=== PATIENT | female | born 1955 ===

== ENCOUNTER 2017-01-10 12:23 | Emergency (ER) | payer OTHER ==
[2017-01-10 12:44] VITALS: BP 160/105; PULSE 85; RESP 16; TEMP 98.2; O2SAT 99
--- NOTE | 2017-01-10 13:12 | ED PDOC ---
HPI: Head Injury Time Seen by Provider: 01/10/17 12:50 Chief Complaint (Nursing): Trauma Chief Complaint (Provider): Head injury History Per: Patient History/Exam Limitations: no limitations Onset/Duration Of Symptoms: Days (x3) Patient States: Struck With Object Severity: Mild Loss Of Consciousness: No Additional Complaint(s): Patient is a 61 year old female presenting to the ED complaining of a head injury status post a door striking her head x3 days ago. Patient also complains of headache. Yesterday at work patient reported increased headache and presents today for evaluation. Denies blurry vision, headache, or vomiting. PMD: Stalin Alva Past Medical History Reviewed: Historical Data, Nursing Documentation, Vital Signs Vital Signs: Last Vital Signs Temp 98.2 F 01/10/17 12:41 Pulse 85 01/10/17 12:41 Resp 16 01/10/17 12:41 BP 160/105 H 01/10/17 12:41 Pulse Ox 99 01/10/17 12:41 - Medical History PMH: HTN, Hypercholesterolemia - Family History Family History: States: [place], CAD, Hypertension - Immunization History Hx Tetanus Toxoid Vaccination: No Hx Influenza Vaccination: No Hx Pneumococcal Vaccination: No - Home Medications Home Medications: Ambulatory Orders Medication Instructions Recorded Norvasc 5 mg PO DAILY 01/26/14 Simvastatin 10 mg PO DAILY 01/26/14 Tekturna 150 mg PO DAILY 01/26/14 Vitamin D 2 tab PO DAILY 01/26/14 Acetaminophen [Tylenol 325mg tab] 650 mg PO STAT #0 tab 01/28/14 Aspirin [Aspirin EC] 325 mg PO DAILY #0 dose 01/28/14 Clopidogrel [Plavix] 75 mg PO DAILY #0 tab 01/28/14 Clopidogrel [Plavix] 75 mg PO DAILY #0 tab 01/28/14 Clonazepam 0.25 mg PO 06/24/14 Sertraline [Zoloft] 50 mg PO 06/24/14 - Allergies Allergies/Adverse Reactions: Allergies Allergy/AdvReac Type Severity Reaction Status Date / Time iodine Allergy RASH Verified 01/10/17 12:41 Review of Systems ROS Statement: Except As Marked, All Systems Reviewed And Found Negative Constitutional: Positive for: Other (head injury) Eyes: Negative for: Vision Change Gastrointestinal: Negative for: Nausea, Vomiting Neurological: Positive for: Headache Physical Exam - Reviewed Nursing Documentation Reviewed: Yes Vital Signs Reviewed: Yes - Physical Exam Appears: Positive for: Well, Non-toxic, No Acute Distress Head Exam: Positive for: ATRAUMATIC, NORMAL INSPECTION, NORMOCEPHALIC Skin: Positive for: Normal Color, Warm, DRY Eye Exam: Positive for: EOMI, Normal appearance, PERRL Neck: Positive for: Normal, Painless ROM Cardiovascular/Chest: Positive for: Regular Rate, Rhythm. Negative for: Gallop , Murmur Respiratory: Positive for: Normal Breath Sounds. Negative for: Accessory Muscle Use, Rhonchi, Respiratory Distress Extremity: Positive for: Normal ROM Neurologic/Psych: Positive for: Alert, embroidery machine operator II-XII (intact), Oriented, Mood/ Affect, Cerebellar Tests, Gait (steady). Negative for: Motor/Sensory Deficits, Aphasia, Facial Droop - ECG O2 Sat by Pulse Oximetry: 99 (RA) Pulse Ox Interpretation: Normal Medical Decision Making Medical Decision Making: Time: 12:55 Impression: 61 y/o female s/p head injury Plan: Patient showed picture 2 hours after the initial injury. Hematoma to the left side of the forehead noted. Motrin 600 mg PO Scribe Attestation: Documented by Phani Rangel acting as a scribe for ZULEIKA Velasco. Provider Attestation: All medical record entries made by the Scribe were at my direction and personally dictated by me. I have reviewed the chart and agree that the record accurately reflects my personal performance of the history, physical exam, medical decision making, and the department course for this patient. I have also personally directed, reviewed, and agree with the discharge instructions and disposition. Disposition - Clinical Impression Clinical Impression: Head injury - Patient ED Disposition Is Patient to be Admitted: No Counseled Patient/Family Regarding: Studies Performed, Diagnosis - Disposition Referrals: [facility] [Outside] Disposition: Routine/Home Disposition Time: 13:10 Condition: STABLE Instructions: Head Injury (ED) Forms: [facility] ED School/Work Excuse
== END 2017-01-10 13:40 | disposition home or self-care (01) ==
LOC: H.ER 12:23
DX: S09.90XA Unspecified injury of head, initial encounter (principal); W22.8XXA Striking against or struck by other objects, initial encounter; Y92.89 Other specified places as the place of occurrence of the external cause; E78.00 Pure hypercholesterolemia, unspecified; I10 Essential (primary) hypertension; Z79.82 Long term (current) use of aspirin

== ENCOUNTER 2018-08-13 19:38 | Observation (INO) | payer SELFPAY ==
[2018-08-13] MEDS ORDERED: DiphenhydrAMINE 50 mg/ml Inj IVP STA (19:52)
--- NOTE | 2018-08-13 20:30 | ED PDOC ---
HPI: Allergic Reaction Time Seen by Provider: 08/13/18 19:40 Chief Complaint (Nursing): Allergic Reaction Chief Complaint (Provider): Allergic Reaction History Per: Patient History/Exam Limitations: no limitations Onset/Duration Of Symptoms: Hrs (x5) Current Symptoms Are (Timing): Still Present Additional Complaint(s): Mar Bailey, a 63 year old female with a past medical history of HTN, who presents to ED complaining of an allergic reaction onset at 15:00 today. Patient reports lip swelling associated with itchy skin on upper extremities. Patient states she had an allergic reaction last week of unknown trigger and was given prednisone by her pcp. She followed up with her PMD this morning and everything was normal and improving. However, patient states she developed symptoms x3 hours after eating two peanut butter cups. Patient has never had a previous allergic reaction to peanut butter. She denies trouble breathing, throat pain, tongue swelling or other medical complaints. PCP: Stalin Moon Past Medical History Reviewed: Historical Data, Nursing Documentation, Vital Signs Vital Signs: Last Vital Signs Temp 97.9 F 08/13/18 19:44 Pulse 78 08/13/18 19:44 Resp 18 08/13/18 19:44 BP 146/87 08/13/18 19:44 Pulse Ox 96 08/13/18 19:44 - Medical History PMH: HTN, Hypercholesterolemia - Surgical History Surgical History: No Surg Hx - Family History Family History: States: [place], CAD, Hypertension - Social History Current smoker - smoking cessation education provided: No Alcohol: None Drugs: Denies - Immunization History Hx Tetanus Toxoid Vaccination: No Hx Influenza Vaccination: No Hx Pneumococcal Vaccination: No - Home Medications Home Medications: Ambulatory Orders Medication Instructions Recorded Simvastatin 10 mg PO DAILY 01/26/14 Famotidine [Pepcid] 20 mg PO BID #20 tab 08/14/18 Methylprednisolone [Medrol Dose 4 mg PO ASDIR #21 mg 08/14/18 Pack (21 tabs)] RX: DiphenhydrAMINE [Benadryl] 25 mg PO TID PRN #30 cap 08/14/18 RX: Losartan [Cozaar] 25 mg PO DAILY 08/14/18 - Allergies Allergies/Adverse Reactions: Allergies Allergy/AdvReac Type Severity Reaction Status Date / Time iodine Allergy RASH Verified 08/13/18 19:48 nut - unspecified Allergy SWELLING Verified 08/14/18 13:17 Review of Systems ROS Statement: Except As Marked, All Systems Reviewed And Found Negative ENT: Positive for: Mouth Swelling (lip swelling). Negative for: Throat Pain, Throat Swelling Respiratory: Negative for: Shortness of Breath Skin: Positive for: Other (itchiness to upper extremities) Physical Exam - Reviewed Nursing Documentation Reviewed: Yes Vital Signs Reviewed: Yes - Physical Exam Appears: Positive for: No Acute Distress (pt is awake and alert, patent airway, no distress, no tachypnea, speaking in full sentences) Head Exam: Positive for: ATRAUMATIC, NORMAL INSPECTION, NORMOCEPHALIC Skin: Positive for: Normal Color, Warm, Dry Eye Exam: Positive for: Normal appearance, EOMI, PERRL ENT: Positive for: Pharynx Is (clear) Neck: Positive for: Normal, Painless ROM Cardiovascular/Chest: Positive for: Regular Rate, Rhythm. Negative for: Murmur Respiratory: Positive for: Normal Breath Sounds. Negative for: Respiratory Distress Gastrointestinal/Abdominal: Positive for: Normal Exam, Soft. Negative for: Tenderness, Guarding, Rebound Back: Positive for: Normal Inspection Extremity: Positive for: Normal ROM (upper and lower extremities). Negative for: Deformity, Swelling Neurologic/Psych: Positive for: Alert, Oriented - Laboratory Results Result Diagrams: 08/13/18 21:13 08/13/18 21:13 - ECG O2 Sat by Pulse Oximetry: 96 (RA) Pulse Ox Interpretation: Normal - Critical Care Total Time (In Min): 30 (multiple reevaluations of pt at bedside ) Documented Critical Care: Time excludes all time spent performint seperately billable procedures Disposition - Clinical Impression Clinical Impression: Allergic reaction - Patient ED Disposition Is Patient to be Admitted: Yes Counseled Patient/Family Regarding: Studies Performed, Diagnosis - Disposition Disposition Time: 22:40 Condition: STABLE Medical Decision Making Medical Decision Making: Time: 19:52 Initial Impression: allergic reaction/ ?angioedema pt currently from a respiratory persepctive stable no tachypnea, no labored breathing, tongue not swollen Initial Plan: --CMP --CBC w/ differential --Benadryl 50 mg IVP --Pepcid 20 mg IVP --SOLU-medrol 125 mg IVP --Reevaluation 22:40 -Patient reports rash went away but lips still swollen. Patient will be admitted to hospitalist, Dr. Jha made aware. She will be placed on OBS Telly possible etiology for swelling could be nut allergy OR SONA inhibitor the patient is on for htn pt currently airway intact, no respiratory distress. lungs clear. awake and alert. Scribe Attestation: Documented by Edwin Brand, acting as a scribe for Clair Helton MD. Provider Scribe Attestation: All medical record entries made by the Scribe were at my direction and person ally dictated by me. I have reviewed the chart and agree that the record accurately reflects my personal performance of the history, physical exam, medical decision making, and the department course for this patient. I have also personally directed, reviewed, and agree with the discharge instructions and disposition.
[2018-08-13 21:22] LABS: BASO % 0.2 % (0.0-2.0); EOS # 0.1 K/uL (0.0-0.7); EOS % 0.9 % (0.0-4.0); HEMOGLOBIN 15.3 g/dL (12.0-16.0); LYMPH # 4.2 K/uL (1.0-4.3); LYMPH % 32.8 % (20.0-40.0); MEAN CELL VOLUME 85.8 fl (81.0-99.0); MEAN CORPUSCULAR HEMOGLOBIN 28.8 pg (27.0-31.0); MEAN CORPUSCULAR HGB CONC 33.6 g/dL (33.0-37.0); MONO # 1.2 K/uL (0.0-0.8); MONO % 9.1 % (0.0-10.0); NEUT # 7.3 K/uL (1.8-7.0); NRBC % 0.1 % (0.0-0.0); RBC 5.3 Mil/uL (3.80-5.20); RED CELL DISTRIBUTION WIDTH 14.1 % (11.5-14.5); WHITE BLOOD COUNT 12.8 K/uL (4.8-10.8)
[2018-08-13 21:41] LABS: BLOOD UREA NITROGEN 30 mg/dl (7-17); CALCIUM 9.2 mg/dL (8.4-10.2); GFR NON-AFRICAN AMERICAN > 60
[2018-08-13 21:52] LABS: ALB/GLOB RATIO 1.1 (1.0-2.1); ALBUMIN 4.4 g/dL (3.5-5.0); ALT/SGPT < 6 U/L (9-52); AST/SGOT 65 U/L (14-36)
--- NOTE | 2018-08-13 23:39 | CP.PCM.HP ---
<WorthyPrem martinez - Last Filed: 08/13/18 23:39> History of Present Illness - History of Present Illness History of Present Illness: 63 year old female presented for evaluation of urticaria and lip swelling. She was seen last week and earlier today with complaints of pruritis and rash on bilateral arms and lip swelling that began this afternoon. She was given prednisone and benadryl in clinic that she finished yesterday. She denies any dizziness, chest tightness, chest pain, shortness of breath. She has no problems swallowing. Patient states she had butterfinger or peanut butter cups prior to symptoms starting. ROS : 12 point ROS negative except as noted above PMH: HTN Medications: as per ecw: losartan, chlorthalidone, lipitor, effexor Allergies: iodine Social: no tobacco, no illicit drugs, no etoh use Surgical Hx: Present on Admission - Present on Admission Any Indicators Present on Admission: No Past Patient History - Past Social History Alcohol: None Drugs: Denies - CARDIAC Hx Hypercholesterolemia: Yes Hx Hypertension: Yes - NEUROLOGICAL Other/Comment: stroke 01/26/14 - MUSCULOSKELETAL/RHEUMATOLOGICAL Hx Falls: No - PSYCHIATRIC Hx Substance Use: No - SURGICAL HISTORY Hx Section: Yes (1992) Meds Allergies/Adverse Reactions: Allergies Allergy/AdvReac Type Severity Reaction Status Date / Time iodine Allergy RASH Verified 08/13/18 19:48 Physical Exam - Constitutional Appears: Non-toxic, No Acute Distress - Eye Exam Eye Exam: EOMI, Normal appearance, PERRL - ENT Exam ENT Exam: Mucous Membranes Moist Additional comments: edema of lips - Neck Exam Neck exam: Positive for: Normal Inspection - Respiratory Exam Respiratory Exam: Clear to Auscultation Bilateral, NORMAL BREATHING PATTERN. absent: Decreased Breath Sounds, Wheezes, Respiratory Distress, Stridor - Cardiovascular Exam Cardiovascular Exam: REGULAR RHYTHM, +S1, +S2 - Neurological Exam Neurological exam: Alert, CN II-XII Intact, Normal Gait, Oriented x3, Reflexes Normal - Skin Skin Exam: Rash Additional comments: wheals on right and left forearms, no other lesions noted one xposed areas Results - Vital Signs Recent Vital Signs: Last Vital Signs Temp 97.9 F 08/13/18 19:44 Pulse 78 08/13/18 19:44 Resp 18 08/13/18 19:44 BP 146/87 08/13/18 19:44 Pulse Ox 96 08/13/18 22:49 - Labs Result Diagrams: 08/13/18 21:13 08/13/18 21:13 Labs: Laboratory Results - last 24 hr 08/13/18 08/13/18 21:13 21:13 WBC 12.8 H RBC 5.30 H Hgb 15.3 Hct 45.5 MCV 85.8 MCH 28.8 MCHC 33.6 RDW 14.1 Plt Count 389 MPV 9.0 Neut % (Auto) 57.0 Lymph % (Auto) 32.8 [place] % (Auto) 9.1 Eos % (Auto) 0.9 Baso % (Auto) 0.2 Neut # (Auto) 7.3 H Lymph # (Auto) 4.2 [place] # (Auto) 1.2 H Eos # (Auto) 0.1 Baso # (Auto) 0.0 Sodium 135 Potassium 4.5 Chloride 97 L Carbon Dioxide 24 Anion Gap 19 BUN 30 H Creatinine 0.8 Est GFR ( Amer) > 60 Est GFR (Non-Af Amer) > 60 Random Glucose 88 Calcium 9.2 Total Bilirubin 1.6 H AST 65 H D ALT < 6 L D Alkaline Phosphatase 110 Total Protein 8.6 H Albumin 4.4 Globulin 4.2 H Albumin/Globulin Ratio 1.1 Assessment & Plan - Assessment and Plan (Free Text) Assessment: 63 year old female admitted for angioedema and urticaria. She is hemodynamically stable, no respiratory disress. Patient is on losartan outpatient, will hold. May be secondary to medications vs food allergy. #Allergic Reaction #Angioedema #HTN -continue IV solumedrol -Continue benadryl q 6 -monitor respiratory status -SCDs Patient seen and examined with attending. <Hamlet Jha - Last Filed: 08/14/18 06:17> Results - Vital Signs Recent Vital Signs: Last Vital Signs Temp 97.5 F L 08/14/18 04:53 Pulse 59 L 08/14/18 04:53 Resp 16 08/14/18 04:53 BP 100/59 L 08/14/18 04:53 Pulse Ox 95 08/14/18 04:53 - Labs Result Diagrams: 08/13/18 21:13 08/13/18 21:13 Labs: Laboratory Results - last 24 hr 08/13/18 08/13/18 21:13 21:13 WBC 12.8 H RBC 5.30 H Hgb 15.3 Hct 45.5 MCV 85.8 MCH 28.8 MCHC 33.6 RDW 14.1 Plt Count 389 MPV 9.0 Neut % (Auto) 57.0 Lymph % (Auto) 32.8 [place] % (Auto) 9.1 Eos % (Auto) 0.9 Baso % (Auto) 0.2 Neut # (Auto) 7.3 H Lymph # (Auto) 4.2 [place] # (Auto) 1.2 H Eos # (Auto) 0.1 Baso # (Auto) 0.0 Sodium 135 Potassium 4.5 Chloride 97 L Carbon Dioxide 24 Anion Gap 19 BUN 30 H Creatinine 0.8 Est GFR ( Amer) > 60 Est GFR (Non-Af Amer) > 60 Random Glucose 88 Calcium 9.2 Total Bilirubin 1.6 H AST 65 H D ALT < 6 L D Alkaline Phosphatase 110 Total Protein 8.6 H Albumin 4.4 Globulin 4.2 H Albumin/Globulin Ratio 1.1 Attending/Attestation - Attestation I have personally seen and examined this patient.: Yes I have fully participated in the care of the patient.: Yes I have reviewed all pertinent clinical information: Yes Notes (Text): 08/14/18 06:02 I saw and examined this patient shoulder to shoulder with Dr Worthy. I agree with the assessment and plan which represent my direct input. This is a 63 years old female with a recent allergic reaction which improved on Benadryl and Prednisone, now come to the ED one day after stopping those medications , with Urticaria and swelling of both lips after eating foods which included Nut. She also uses an SONA inhibitor for Hypertension control. She is being treated with H1, H2 blockers along with Methylprednisolone. She will have to discontinue the SONA inhibitorand be discharged on Prednisone with referred to the Manager Payroll. Hamlet Jha MD
[2018-08-14] MEDS: Sodium Chloride 0.9% 1,000 ML IV SCH ×2 (00:39→08:57)
[2018-08-14 02:28] VITALS: BMI 28.1
[2018-08-14] MEDS ORDERED: methylPREDNISolone 60 MG in Sodium Chloride 0.9% 50 ML IVPB SCH (04:00)
--- NOTE | 2018-08-14 06:47 | CARD ---
APPROVED REPORT Date of service: 08/14/2018 EKG Measurement Heart [id number] <Conclusion> Normal sinus rhythm Prolonged QT Abnormal ECG
[2018-08-14 12:34] VITALS: RESP 19; TEMP 98.1
[2018-08-14 12:42] VITALS: BP 121/71; PULSE 74
--- NOTE | 2018-08-14 14:07 | CP.PCM.DIS ---
<ValentinaSepideha - Last Filed: 08/14/18 14:38> Provider - Provider Date of Admission: 08/13/18 22:24 Attending physician: Hamlet Jha Primary care physician: Dr. Merino- [facility] Time Spent in preparation of Discharge (in minutes): 30 Diagnosis - Discharge Diagnosis (1) Lip swelling Status: Acute (2) Allergic reaction Status: Acute Hospital Course - Lab Results Lab Results: Most Recent Lab Values WBC 12.8 K/uL (4.8-10.8) H 08/13/18 21:13 RBC 5.30 Mil/uL (3.80-5.20) H 08/13/18 21:13 Hgb 15.3 g/dL (12.0-16.0) 08/13/18 21:13 Hct 45.5 % (34.0-47.0) 08/13/18 21:13 MCV 85.8 fl (81.0-99.0) 08/13/18 21:13 MCH 28.8 pg (27.0-31.0) 08/13/18 21:13 MCHC 33.6 g/dL (33.0-37.0) 08/13/18 21:13 RDW 14.1 % (11.5-14.5) 08/13/18 21:13 Plt Count 389 K/uL (130-400) 08/13/18 21:13 MPV 9.0 fl (7.2-11.7) 08/13/18 21:13 Neut % (Auto) 57.0 % (50.0-75.0) 08/13/18 21:13 Lymph % (Auto) 32.8 % (20.0-40.0) 08/13/18 21:13 [place] % (Auto) 9.1 % (0.0-10.0) 08/13/18 21:13 Eos % (Auto) 0.9 % (0.0-4.0) 08/13/18 21:13 Baso % (Auto) 0.2 % (0.0-2.0) 08/13/18 21:13 Neut # (Auto) 7.3 K/uL (1.8-7.0) H 08/13/18 21:13 Lymph # (Auto) 4.2 K/uL (1.0-4.3) 08/13/18 21:13 [place] # (Auto) 1.2 K/uL (0.0-0.8) H 08/13/18 21:13 Eos # (Auto) 0.1 K/uL (0.0-0.7) 08/13/18 21:13 Baso # (Auto) 0.0 K/uL (0.0-0.2) 08/13/18 21:13 Sodium 135 mmol/l (132-148) 08/13/18 21:13 Potassium 4.5 MMOL/L (3.6-5.0) 08/13/18 21:13 Chloride 97 mmol/L (98-107) L 08/13/18 21:13 Carbon Dioxide 24 mmol/L (22-30) 08/13/18 21:13 Anion Gap 19 (10-20) 08/13/18 21:13 BUN 30 mg/dl (7-17) H 08/13/18 21:13 Creatinine 0.8 mg/dl (0.7-1.2) 08/13/18 21:13 Est GFR ( Amer) > 60 08/13/18 21:13 Est GFR (Non-Af Amer) > 60 08/13/18 21:13 Random Glucose 88 mg/dL (65-105) 08/13/18 21:13 Calcium 9.2 mg/dL (8.4-10.2) 08/13/18 21:13 Total Bilirubin 1.6 mg/dl (0.2-1.3) H 08/13/18 21:13 AST 65 U/L (14-36) H D 08/13/18 21:13 ALT < 6 U/L (9-52) L D 08/13/18 21:13 Alkaline Phosphatase 110 U/L (38-126) 08/13/18 21:13 Total Protein 8.6 G/DL (6.3-8.2) H 08/13/18 21:13 Albumin 4.4 g/dL (3.5-5.0) 08/13/18 21:13 Globulin 4.2 gm/dL (2.2-3.9) H 08/13/18 21:13 Albumin/Globulin Ratio 1.1 (1.0-2.1) 08/13/18 21:13 - Hospital Course Hospital Course: 63 year old female with history of hypertension who presented for evaluation of urticaria and lip swelling and was admitted due to significant swelling and concern for laryngeoedema. Pt was treated with IV prednisone and benadryl, and this morning, urticaria has completely resolved, and lip swelling has improved significantly. Pt states she has allergy to iodine and avoids shellfish, but has no other food restrictions/allergies in the past, and that she has never happened before. Throughout her stay, she did not experience any shortness of breath, wheezing, or feeling her throat swell/close up, or any issues with swallowing. This morning, she was seen at bedside and reported resolution of urticarial and improvement of lip swelling. She denies dizziness, chest tightness, chest pain, shortness of breath. She will be discharged today, with prescription for Medrol Pack, Benadryl and instructions to follow up with PMD at the [facility] on Aug 18 at 11 am. Discharge Exam - Head Exam Head Exam: ATRAUMATIC, NORMAL INSPECTION, NORMOCEPHALIC - Eye Exam Eye Exam: Normal appearance - ENT Exam Additional comments: lip swelling; significantly less than in pictures patient is able to show of night before, on admission - Respiratory Exam Respiratory Exam: Clear to PA & Lateral, NORMAL BREATHING PATTERN. absent: Wheezes, Respiratory Distress - Cardiovascular Exam Cardiovascular Exam: REGULAR RHYTHM, +S1, +S2 - GI/Abdominal Exam GI & Abdominal Exam: Soft. absent: Tenderness - Extremities Exam Extremities exam: normal inspection - Neurological Exam Neurological exam: Alert, Oriented x3 - Psychiatric Exam Psychiatric exam: Normal Affect, Normal Mood - Skin Skin Exam: Dry, Normal Color, Warm Additional comments: no urticarial lesions Discharge Plan - Discharge Medications Prescriptions: RX: DiphenhydrAMINE [Benadryl] 25 mg PO TID PRN #30 cap PRN Reason: Allergy Symptoms Famotidine [Pepcid] 20 mg PO BID #20 tab Methylprednisolone [Medrol Dose Pack (21 tabs)] 4 mg PO ASDIR #21 mg - Follow Up Plan Condition: GOOD Disposition: HOME/ ROUTINE Instructions: Anaphylaxis Additional Instructions: Please follow up with PMD Dr. Merino on Aug 18 at [address] [facility] at [address] [place] [address]. Return to ED if you experience recurrent swelling, throat tightness, or difficulty breathing. Referrals: [facility] [Outside] - 08/18/18 11:00 am () <HarmanSyd ram D - Last Filed: 08/14/18 15:35> Provider - Provider Date of Admission: 08/13/18 22:24 Attending physician: Hamlet Jha [facility] Course - Lab Results Lab Results: Most Recent Lab Values WBC 12.8 K/uL (4.8-10.8) H 08/13/18 21:13 RBC 5.30 Mil/uL (3.80-5.20) H 08/13/18 21:13 Hgb 15.3 g/dL (12.0-16.0) 08/13/18 21:13 Hct 45.5 % (34.0-47.0) 08/13/18 21:13 MCV 85.8 fl (81.0-99.0) 08/13/18 21:13 MCH 28.8 pg (27.0-31.0) 08/13/18 21:13 MCHC 33.6 g/dL (33.0-37.0) 08/13/18 21:13 RDW 14.1 % (11.5-14.5) 08/13/18 21:13 Plt Count 389 K/uL (130-400) 08/13/18 21:13 MPV 9.0 fl (7.2-11.7) 08/13/18 21:13 Neut % (Auto) 57.0 % (50.0-75.0) 08/13/18 21:13 Lymph % (Auto) 32.8 % (20.0-40.0) 08/13/18 21:13 [place] % (Auto) 9.1 % (0.0-10.0) 08/13/18 21:13 Eos % (Auto) 0.9 % (0.0-4.0) 08/13/18 21:13 Baso % (Auto) 0.2 % (0.0-2.0) 08/13/18 21:13 Neut # (Auto) 7.3 K/uL (1.8-7.0) H 08/13/18 21:13 Lymph # (Auto) 4.2 K/uL (1.0-4.3) 08/13/18 21:13 [place] # (Auto) 1.2 K/uL (0.0-0.8) H 08/13/18 21:13 Eos # (Auto) 0.1 K/uL (0.0-0.7) 08/13/18 21:13 Baso # (Auto) 0.0 K/uL (0.0-0.2) 08/13/18 21:13 Sodium 135 mmol/l (132-148) 08/13/18 21:13 Potassium 4.5 MMOL/L (3.6-5.0) 08/13/18 21:13 Chloride 97 mmol/L (98-107) L 08/13/18 21:13 Carbon Dioxide 24 mmol/L (22-30) 08/13/18 21:13 Anion Gap 19 (10-20) 08/13/18 21:13 BUN 30 mg/dl (7-17) H 08/13/18 21:13 Creatinine 0.8 mg/dl (0.7-1.2) 08/13/18 21:13 Est GFR ( Amer) > 60 08/13/18 21:13 Est GFR (Non-Af Amer) > 60 08/13/18 21:13 Random Glucose 88 mg/dL (65-105) 08/13/18 21:13 Calcium 9.2 mg/dL (8.4-10.2) 08/13/18 21:13 Total Bilirubin 1.6 mg/dl (0.2-1.3) H 08/13/18 21:13 AST 65 U/L (14-36) H D 08/13/18 21:13 ALT < 6 U/L (9-52) L D 08/13/18 21:13 Alkaline Phosphatase 110 U/L (38-126) 08/13/18 21:13 Total Protein 8.6 G/DL (6.3-8.2) H 08/13/18 21:13 Albumin 4.4 g/dL (3.5-5.0) 08/13/18 21:13 Globulin 4.2 gm/dL (2.2-3.9) H 08/13/18 21:13 Albumin/Globulin Ratio 1.1 (1.0-2.1) 08/13/18 21:13 Attending/Attestation - Attestation I have personally seen and examined this patient.: Yes I have fully participated in the care of the patient.: Yes I have reviewed all pertinent clinical information, including history, physical exam and plan: Yes Notes (Text): 08/14/18 15:33 Patient seen and examined. Case discussed and agreed with assessment. Patient will follow up with Dr Ball and was advised to also see an allergologist for further work ups and management.
--- NOTE | 2018-08-14 14:56 | US ---
Date of service: 08/14/2018 HISTORY: r/o liver disease ,, elevated Salvatore COMPARISON: None. TECHNIQUE: Sonographic evaluation of the right upper quadrant of the abdomen. FINDINGS: LIVER: Measures 13.2 cm in length. Increased echogenicity of the liver parenchyma. No mass. No intrahepatic bile duct dilatation. GALLBLADDER: Unremarkable. No gallstones. COMMON BILE DUCT: Measures 3 mm. No stones. No dilatation. PANCREAS: Unremarkable as visualized. No mass. No ductal dilatation. RIGHT KIDNEY: Measures 9.4 x 4.0 x 4.2 cm in length. Lower pole cyst measuring 1.5 x 1.3 x 1.3 cm. Lower pole nonobstructive calculus measuring 0.5 x 0.6 x 0.4 cm. Normal echogenicity. No calculus, mass, or hydronephrosis. AORTA: No aneurysmal dilatation. IVC: Unremarkable. OTHER FINDINGS: None . IMPRESSION: Hepatic steatosis. Right renal cyst and nonobstructive 6 mm nephrolith.
--- NOTE | 2018-08-14 19:09 | CARD ---
APPROVED REPORT Date of service: 08/14/2018 EKG Measurement Heart [id number] <Conclusion> Normal sinus rhythm Low voltage QRS Cannot rule out Anterior infarct, age undetermined Abnormal ECG
[2018-08-15 06:19] VITALS: O2SAT 96
== END 2018-08-14 15:25 | disposition home or self-care (01) ==
LOC: H.ER 19:38 → H.ERHOLD 22:24 → H.ICU/CCU 08-14 02:00
PROVIDERS: ADMIT Internal Medicine; ATTEND Internal Medicine
DX: L50.0 Allergic urticaria (principal); E78.00 Pure hypercholesterolemia, unspecified; Z91.041 Radiographic dye allergy status; Z91.018 Allergy to other foods; Z86.73 Personal history of transient ischemic attack (TIA), and cerebral infarction without residual deficits; I10 Essential (primary) hypertension
CPT/HCPCS: 76705; 80053; 85025; 87081; 93005; 96361; 96374; 96375; 96376; 99282; G0378; J1200; J2930; J7030

== ENCOUNTER 2018-09-07 18:28 | Emergency (ER) | payer SELFPAY ==
[2018-09-07 18:29] VITALS: BMI 28.1
[2018-09-07 18:40] VITALS: TEMP 98.3; O2SAT 99
--- NOTE | 2018-09-07 19:34 | ED PDOC ---
Lower Extremity Pain/Injury Time Seen by Provider: 09/07/18 18:42 Chief Complaint (Nursing): Lower Extremity Problem/Injury Chief Complaint (Provider): Lower Extremity Problem/Injury History Per: Patient History/Exam Limitations: no limitations Onset/Duration Of Symptoms: Days (yesterday) Current Symptoms Are (Timing): Still Present Additional Complaint(s): 63 year old female with a history of hypertension, high cholesterol and depression presents to the ED for evaluation of right foot and ankle pain s/p fall yesterday. Patient states she was going into her basement when she tripped on the last four steps and rolled the right foot and ankle. She reports feeling it pop. Patient has a history of fracture of that foot years ago which did not require surgical repair. She has been taking Ibuprofen for pain, last dose was 400 mg at 9 am. Patient denies any other injury, but reports localized pain to foot and ankle and described pain a 8 out of 10 in severity. She walked on foot all day because she had to babysit her grandchild and noticed her foot and ankle were swelling more. PMD: Artie - Ankle/Foot Description Of Injury: Other (tripped) Past Medical History Reviewed: Historical Data, Nursing Documentation, Vital Signs Vital Signs: Last Vital Signs Temp 98.3 F 09/07/18 18:35 Pulse 84 09/07/18 18:35 Resp 18 09/07/18 18:35 BP 148/94 H 09/07/18 18:35 Pulse Ox 99 09/07/18 18:35 - Medical History PMH: Depression, HTN, Hypercholesterolemia, TIA - Surgical History Surgical History: - Family History Family History: States: MS, CAD, Hypertension - Home Medications Home Medications: Ambulatory Orders Medication Instructions Recorded Simvastatin 10 mg PO DAILY 01/26/14 Famotidine [Pepcid] 20 mg PO BID #20 tab 08/14/18 Methylprednisolone [Medrol Dose 4 mg PO ASDIR #21 mg 08/14/18 Pack (21 tabs)] RX: DiphenhydrAMINE [Benadryl] 25 mg PO TID PRN #30 cap 08/14/18 RX: Losartan [Cozaar] 25 mg PO DAILY 08/14/18 Acetaminophen [Acetaminophen 8 650 mg PO Q8 PRN #21 tablet.er 09/07/18 Hour] Meloxicam [Mobic] 15 mg PO DAILY PRN #10 tab 09/07/18 RX: traMADol [Ultram] 50 mg PO Q6 PRN #12 tab 09/07/18 - Allergies Allergies/Adverse Reactions: Allergies Allergy/AdvReac Type Severity Reaction Status Date / Time iodine Allergy RASH Verified 08/13/18 19:48 nut - unspecified Allergy SWELLING Verified 08/14/18 13:17 Review of Systems ROS Statement: Except As Marked, All Systems Reviewed And Found Negative Musculoskeletal: Positive for: Foot Pain (right foot and ankle pain ) Physical Exam - Reviewed Nursing Documentation Reviewed: Yes Vital Signs Reviewed: Yes - Physical Exam Comments: GENERAL APPEARANCE: Patient is awake, alert, oriented x 3, and uncomfortable appearing. SKIN: Warm, dry; (-) cyanosis. NECK: Supple, FROM CARDIOVASCULAR: Normal rate and rhythm RESPIRATORY: lungs clear to auscultation bilaterally (-) rales (-) wheezing (-) rhonchi. Breath sounds equal bilaterally. Respirations even and nonlabored. LOWER EXTREMITY: Tenderness to lateral malleolus and 4th and 5th metatarsal of right foot, (+)ankle effusion (+) large area of edema and ecchymosis to lateral aspects of right midfoot and forefoot. No range of motion at right ankle secondary to pain; sensation and capillary refill intact throughout. Remainder of lower extremity is nontender with FROM. (-) calf tenderness. Patient is limping in the ED. CARDIOVASCULAR: (+) distal pulse. NEUROLOGIC: (+) distal sensation. - ECG O2 Sat by Pulse Oximetry: 99 (RA) Pulse Ox Interpretation: Normal Medical Decision Making Medical Decision Making: Time: 1849 Clinical Impression: Foot and ankle pain, rule out fracture Initial Plan: --Toradol 15 mg IM --Ultram 50 mg PO (not driving home) --Right ankle XR --Right foot XR Time: 1917 --X-ray of ankle is unremarkable. --Foot x-ray (+) fracture to the proximal aspect of the 5th metatarsal. In light of x-ray findings, podiatry consult placed at 1914. Time: 1919 --Spoke to podiatry resident Fabi who is agreeable to evaluation of patient in ED. Time: 1999 --Podiatry resident at bedside. See consult note. 2044 Patient placed in posterior short leg splint by podiatry. Provided with crutches and instructed on crutch walking. Patient to follow up with podiatry clinic within the week as directed by podiatry. TEMO encouraged. Repeat BP: 147/98 On re-evaluation, patient reports improvement of symptoms. On exam, patient remains AAOx3, in no acute distress. Vitals stable. Lab/Diagnostic results d/w the patient in great detail. Diagnosis of acute foot and ankle pain, ankle sprain, metatarsal fracture d/w the patient. Based on history, exam and diagnostic results, plan will be for outpatient follow up with podiatry. Patient instructed to follow-up with pmd / referral provided / the clinic in 1- 2 days without fail. Advised to take medication as prescribed. Return to the emergency room at any time for any new or worsening symptoms. Patient states she fully agrees with and understands discharge instructions. States that she agrees with the plan and disposition. Verbalized and repeated discharge instructions and plan. I have given the patient opportunity to ask any additional questions. Scribe Attestation: Documented by Kira Truong, acting as a scribe for Maritza Alejo PA-C. Provider Scribe Attestation: All medical record entries made by the Scribe were at my direction and personally dictated by me. I have reviewed the chart and agree that the record accurately reflects my personal performance of the history, physical exam, medical decision making, and the department course for this patient. I have also personally directed, reviewed, and agree with the discharge instructions and disposition. Disposition - Clinical Impression Clinical Impression: Metatarsal fracture, Ankle sprain - Patient ED Disposition Is Patient to be Admitted: No Counseled Patient/Family Regarding: Studies Performed, Diagnosis, Need For Followup, Rx Given - Disposition Referrals: Podiatry Clinic [Outside] Stalin Alva [Family Provider] - Disposition: Routine/Home Disposition Time: 20:50 Condition: STABLE Additional Instructions: The emergency medical care you received today was directed at your acute symptoms. If you were prescribed any medication, please fill it and take as directed. It may take several days for your symptoms to resolve. Return to the Emergency Department if your symptoms worsen, do not improve, or if you have any other problems. Please contact your doctor in 2 days for re-evaluation and follow up / or call one of the physicians/clinics you have been referred to that are listed on the Patient Visit Information form that is included in your discharge packet. Bring any paperwork you were given at discharge with you along with any medications you are taking to your follow up visit. Our treatment cannot replace ongoing medical care by a primary care provider (PCP) outside of the emergency department. Prescriptions: Acetaminophen [Acetaminophen 8 Hour] 650 mg PO Q8 PRN #21 tablet.er PRN Reason: Pain, Moderate (4-7) Meloxicam [Mobic] 15 mg PO DAILY PRN #10 tab PRN Reason: Pain, Moderate (4-7) RX: traMADol [Ultram] 50 mg PO Q6 PRN #12 tab PRN Reason: Pain, Severe (8-10) Instructions: Ankle Sprain (DC), Foot Fracture (DC) Forms: [employer] (Singaporean) Print Language: ALBANIAN - POA Present On Arrival: Falls Or Trauma
[2018-09-07 20:59] VITALS: BP 147/98; PULSE 72; RESP 16
--- NOTE | 2018-09-07 21:36 | CP.PCM.CON ---
History of Present Illness - History of Present Illness History of Present Illness: Podiatry consult note for Dr. Xie 63 y/o female patient with PMHx of HTn and high cholesterol was seen and evaluated due to complaints of pain to her right foot s/p fall. Patient states she was going down to her basement yesterday, when she tripped on the stairs and twisted her right foot and ankle. Patient states she iced the foot, applied an SONA bandage, and had her foot elevated at night. Patient states her pain is 7/10 on the VAS. Patient reports takign Ibuprofen for the pain. Patient denies any numbness or tingling. Patient states the pain is worse with ambulation. Patient reports she walked on the foot throughout the day, however the swelling has decreased. PMHx: HTN, hyperlipidemia, depression Medications: see chart Allergies: Codeine Review of Systems - Review of Systems All systems: reviewed and no additional remarkable complaints except Review of Systems: As per HPI Past Patient History - Past Medical History & Family History Past Medical History?: Yes - Past Social History Smoking Status: Never Smoked - CARDIAC Hx Hypercholesterolemia: Yes Hx Hypertension: Yes - PULMONARY Hx Respiratory Disorders: No - NEUROLOGICAL Hx Transient Ischemic Attacks (TIA): Yes - HEENT Hx HEENT Problems: No - RENAL Hx Chronic Kidney Disease: No - ENDOCRINE/METABOLIC Hx Endocrine Disorders: No - HEMATOLOGICAL/ONCOLOGICAL Hx Blood Disorders: No - INTEGUMENTARY Hx Dermatological Problems: No - MUSCULOSKELETAL/RHEUMATOLOGICAL Hx Musculoskeletal Disorders: No - GASTROINTESTINAL Hx Gastrointestinal Disorders: No - GENITOURINARY/GYNECOLOGICAL Hx Genitourinary Disorders: No - PSYCHIATRIC Hx Depression: Yes - SURGICAL HISTORY Hx Surgeries: Yes - ANESTHESIA Hx Anesthesia: Yes Hx Anesthesia Reactions: No Hx Malignant Hyperthermia: No Meds Home Medications: Home Medication List Medication Instructions Recorded Confirmed Type Acetaminophen [Acetaminophen 8 650 mg PO Q8 PRN #21 tablet.er 09/07/18 Rx Hour] Meloxicam [Mobic] 15 mg PO DAILY PRN #10 tab 09/07/18 Rx traMADol [Ultram] 50 mg PO Q6 PRN #12 tab 09/07/18 Rx Allergies/Adverse Reactions: Allergies Allergy/AdvReac Type Severity Reaction Status Date / Time iodine Allergy RASH Verified 08/13/18 19:48 nut - unspecified Allergy SWELLING Verified 08/14/18 13:17 Physical Exam - Constitutional Appears: Well, Non-toxic, No Acute Distress - Head Exam Head Exam: ATRAUMATIC, NORMOCEPHALIC - Extremities Exam Additional comments: Right Lower Extremity VASC: DP and PT 2/4 bilaterally, CFT less than 3 seconds X 10, moderate edema noted to the dorso-lateral aspect of the foot extending proximally to the level of the ankle, TG within normal limits NEURO: grossly intact DERM: edema and erythema noted to the dorso-lateral aspect of the foot extending proximally to the level of the ankle, ecchymosis noted along the 5th metatarsal laterally ORTHO: significant pain on palpation along the 5th metatarsal, pain with eversion > inversion, pain at the lateral ankle diffusely, negative Anterior drawer test, no pain along the peroneal tendons, no pain with ankle range of motion, patient guarding due to pain, unable to assess MSK - Neurological Exam Neurological exam: Alert, Oriented x3 - Psychiatric Exam Psychiatric exam: Normal Affect, Normal Mood - Skin Skin Exam: Normal Color Results - Vital Signs Recent Vital Signs: Last Vital Signs Temp 98.3 F 09/07/18 18:35 Pulse 72 09/07/18 20:58 Resp 16 09/07/18 20:58 BP 147/98 H 09/07/18 20:58 Pulse Ox 99 09/07/18 21:29 Assessment & Plan - Assessment and Plan (Free Text) Assessment: 63 y/o female patient seen and evaluated for fracture to the 5th metatarsal base right foot Plan: Patient seen and evaluated for Dr. Xie Plan discussed with attending Chart, labs and vitals were reviewed Ordered x-rays of the right foot- fracture notes at the base of the 5th metatarsal, non-displaced Patient placed in a posterior splint and provided with crutches, patient to keep splint C/D/I until visit to clinic Patient advised with remain NWB to RLE and taught how to use crutches Patient demonstrate verbal understanding, and will follow up in clinic Thank you for the podiatry consult - Date & Time Date: 09/07/18 Time: 21:48
--- NOTE | 2018-09-08 08:07 | RAD ---
Date of service: 09/07/2018 PROCEDURE: Right Foot Radiographs. HISTORY: s/p fall, pain COMPARISON: None. FINDINGS: BONES: There is a nondisplaced, transverse fracture through the base of the 5th metatarsal bone potentially involving the articulation with the cuboid bone. However, this fracture may be incomplete. JOINTS: Diffuse degenerative joint disease appreciated, most prominent at the interphalangeal joints diffusely and the 1st metatarsophalangeal joint. Mild hallux valgus deformity. SOFT TISSUES: Normal. OTHER FINDINGS: None. IMPRESSION: Right 5th metatarsal base fracture bone potentially incomplete. Nevertheless, it may involve the articulation with the right cuboid bone. Degenerative changes diffusely noted as discussed above but primarily affecting the forefoot. Hallux valgus deformity.
--- NOTE | 2018-09-08 08:09 | RAD ---
Date of service: 09/07/2018 PROCEDURE: Right Ankle Radiographs. HISTORY: s/p fall, joint pain COMPARISON: None available. FINDINGS: BONES: Incidental fracture identified at the base of the 5th metatarsal bone described separate right foot radiograph series 09/07/2018. Please see separate report. No additional fracture right ankle. JOINTS: No subluxation or dislocation appreciated. Limited degenerative changes at the tibiotalar and subtalar joints.. Ankle mortise maintained. Talar dome intact SOFT TISSUES: Normal. OTHER FINDINGS: None. IMPRESSION: Fracture of the right ankle bony elements, however, an incidental fracture of the base of the 5th metatarsal bone is identified and is described in a separate right foot radiograph series also performed 09/07/2018. Please see separate report.
== END 2018-09-07 21:23 | disposition home or self-care (01) ==
LOC: H.ER 18:28
DX: S92.315A Nondisplaced fracture of first metatarsal bone, left foot, initial encounter for closed fracture (principal); S93.401A Sprain of unspecified ligament of right ankle, initial encounter; W10.9XXA Fall (on) (from) unspecified stairs and steps, initial encounter; Y92.89 Other specified places as the place of occurrence of the external cause; I10 Essential (primary) hypertension; Z86.73 Personal history of transient ischemic attack (TIA), and cerebral infarction without residual deficits
CPT/HCPCS: 29515; 73610; 73630; 96372; 99282; J1885

== ENCOUNTER 2018-09-29 13:18 | Emergency (ER) | payer SELFPAY ==
[2018-09-29 13:18] VITALS: BMI 28.1
[2018-09-29 13:50] VITALS: BP 131/88; PULSE 91; RESP 18; TEMP 98.5; O2SAT 96
--- NOTE | 2018-09-29 15:23 | ED PDOC ---
Lower Extremity Pain/Injury Time Seen by Provider: 09/29/18 13:53 Chief Complaint (Nursing): Lower Extremity Problem/Injury Chief Complaint (Provider): Lower Extremity Problem/Injury History Per: Patient History/Exam Limitations: no limitations Onset/Duration Of Symptoms: Days (1x) Current Symptoms Are (Timing): Still Present Severity: Mild Additional Complaint(s): 63 year old female with no pertinent past medical history presents to the ED for wound check. Patient was seen in the ED for a 5th metatarsal (right) fracture on 09/07/2018. Patient had a splint applied, and after a follow up appointment, patient had a cast put on. Patient reports that she got her cast wet yesterday from the rain, and now it is moist and soft, prompting her ED visit today. Patient denies having any other complaints. PMD: Stalin Mohan MD Past Medical History Reviewed: Historical Data, Nursing Documentation, Vital Signs Vital Signs: Last Vital Signs Temp 98.5 F 09/29/18 13:47 Pulse 91 H 09/29/18 13:47 Resp 18 09/29/18 13:47 BP 131/88 09/29/18 13:47 Pulse Ox 96 09/29/18 13:47 - Medical History PMH: Depression, HTN, Hypercholesterolemia, TIA Denies: Chronic Kidney Disease - Surgical History Surgical History: - Family History Family History: States: [place], CAD, Hypertension - Social History Current smoker - smoking cessation education provided: No Alcohol: None Drugs: Denies - Immunization History Hx Tetanus Toxoid Vaccination: No Hx Influenza Vaccination: No Hx Pneumococcal Vaccination: No - Home Medications Home Medications: Ambulatory Orders Medication Instructions Recorded Simvastatin 10 mg PO DAILY 01/26/14 DiphenhydrAMINE [Benadryl] 25 mg PO TID PRN #30 cap 08/14/18 Famotidine [Pepcid] 20 mg PO BID #20 tab 08/14/18 Losartan [Cozaar] 25 mg PO DAILY 08/14/18 Methylprednisolone [Medrol Dose 4 mg PO ASDIR #21 mg 08/14/18 Pack (21 tabs)] Acetaminophen [Acetaminophen 8 650 mg PO Q8 PRN #21 tablet.er 09/07/18 Hour] Meloxicam [Mobic] 15 mg PO DAILY PRN #10 tab 09/07/18 traMADol [Ultram] 50 mg PO Q6 PRN #12 tab 09/07/18 - Allergies Allergies/Adverse Reactions: Allergies Allergy/AdvReac Type Severity Reaction Status Date / Time iodine Allergy RASH Verified 08/13/18 19:48 nut - unspecified Allergy SWELLING Verified 08/14/18 13:17 Review of Systems ROS Statement: Except As Marked, All Systems Reviewed And Found Negative Physical Exam - Reviewed Nursing Documentation Reviewed: Yes Vital Signs Reviewed: Yes - Physical Exam Appears: Positive for: Well, Non-toxic, No Acute Distress Head Exam: Positive for: ATRAUMATIC, NORMOCEPHALIC Skin: Positive for: Normal Color, Warm, Dry Eye Exam: Positive for: Normal appearance ENT: Positive for: Normal ENT Inspection Neck: Positive for: Normal Cardiovascular/Chest: Negative for: Bradycardia, Tachycardia Respiratory: Negative for: Accessory Muscle Use, Respiratory Distress Extremity: Positive for: Capillary Refill (<2 sec.), Other (right lower extremity: sensation in tact. (-) swelling.). Negative for: Normal ROM Neurologic/Psych: Positive for: Alert, Oriented (3x) - ECG O2 Sat by Pulse Oximetry: 96 (RA) Pulse Ox Interpretation: Normal - Radiology X-Ray: Interpreted by Me (discussed with . See MDM note.), Viewed By Me Medical Decision Making Medical Decision Makin:53 Initial impression: 63 year old female in the ED for an evaluation of her wet cast. Initial plan: * podiatry consult Patient seen by . New cast applied. requesting XRay of right foot (3 views). XRay ordered. 16:05 XRay read and reviewed by radiologist. Discussed XRay with , who also reviewed the XRay. Patient is stable for discharge. ------ Scribe Attestation: Documented by Maritza Diaz, acting as a scribe for Nafisa Calero PA-C. Provider Scribe Attestation: All medical record entries made by the Scribe were at my direction and personally dictated by me. I have reviewed the chart and agree that the record accurately reflects my personal performance of the history, physical exam, medical decision making, and the department course for this patient. I have also personally directed, reviewed, and agree with the discharge instructions and disposition. Disposition - Clinical Impression Clinical Impression: Cast removal, Cast in place on lower extremity - Patient ED Disposition Is Patient to be Admitted: No Counseled Patient/Family Regarding: Diagnosis, Need For Followup - Disposition Disposition: Routine/Home Disposition Time: 16:05 Condition: STABLE Forms: [employer] (Telugu)
--- NOTE | 2018-09-29 15:58 | CP.PCM.CON ---
History of Present Illness - History of Present Illness History of Present Illness: Podiatry consult note for Dr. Xie 63 y/o female patient with PMH of HTN and high cholesterol was seen and evaluated in the ED for Right LE cast change. Patient states she She had fracture in the 5th metatarsal bone of her right foot about 4 weeks ago. She states that she came the ED where her R leg was casted. Patient states that she was following up in the clinic and her last visit was last Saturday. Patient states that yesterday her cast got wet as she had to walk in the rain. Patient states that the because of the water the cast is bothering her and her right foot got macerated. Patient denies any numbness or tingling. Patient states the pain in her R foot imroved a lot. Patient denies any recent F/N/V/C or SOB. She denies any other pedal complaint at this time. PMH: HTN, hyperlipidemia, depression Medications: see chart Allergies: Iodine, Nuts Social Hx: Denies tobaco use, EtOH or illicit drug use. Review of Systems - Review of Systems Review of Systems: As per HPI - Constitutional Constitutional: As Per HPI Past Patient History - Past Medical History & Family History Past Medical History?: Yes - Past Social History Smoking Status: Never Smoked - CARDIAC Hx Hypercholesterolemia: Yes Hx Hypertension: Yes - PULMONARY Hx Respiratory Disorders: No - NEUROLOGICAL Hx Transient Ischemic Attacks (TIA): Yes - HEENT Hx HEENT Problems: No - RENAL Hx Chronic Kidney Disease: No - ENDOCRINE/METABOLIC Hx Endocrine Disorders: No - HEMATOLOGICAL/ONCOLOGICAL Hx Blood Disorders: No - INTEGUMENTARY Hx Dermatological Problems: No - MUSCULOSKELETAL/RHEUMATOLOGICAL Hx Musculoskeletal Disorders: No - GASTROINTESTINAL Hx Gastrointestinal Disorders: No - GENITOURINARY/GYNECOLOGICAL Hx Genitourinary Disorders: No - PSYCHIATRIC Hx Depression: Yes - SURGICAL HISTORY Hx Surgeries: Yes - ANESTHESIA Hx Anesthesia: Yes Hx Anesthesia Reactions: No Hx Malignant Hyperthermia: No Meds Allergies/Adverse Reactions: Allergies Allergy/AdvReac Type Severity Reaction Status Date / Time iodine Allergy RASH Verified 08/13/18 19:48 nut - unspecified Allergy SWELLING Verified 08/14/18 13:17 Physical Exam - Constitutional Appears: Well, Non-toxic, No Acute Distress - Head Exam Head Exam: ATRAUMATIC, NORMOCEPHALIC - Extremities Exam Additional comments: Right Lower Extremity VASC: DP/PT 2/4 bilaterally, Cap refill < 3 seconds to all digits, Tem gradient warm to cool from proximal to distal. No edema noted. NEURO: Gross and protective sensations are grossly intact DERM: No open lesions, No edema or erythema noted. ORTHO: Mild pain on palpation along the 5th metatarsal, Mild pain with eversion > inversion, no pain with ankle range of motion, Muscle power intact 5/5 to all groups - Neurological Exam Neurological exam: Alert, Oriented x3 - Psychiatric Exam Psychiatric exam: Normal Affect, Normal Mood Results - Vital Signs Recent Vital Signs: Last Vital Signs Temp 98.5 F 09/29/18 13:47 Pulse 91 H 09/29/18 13:47 Resp 18 09/29/18 13:47 BP 131/88 09/29/18 13:47 Pulse Ox 96 09/29/18 15:23 Assessment & Plan - Assessment and Plan (Free Text) Assessment: 63 y/o female patient seen and evaluated in the ED for Right LE cast change for Right 5th met fracture. Plan: Patient seen and evaluated for Dr. Xie Plan discussed with attending Chart and vitals were reviewed; Afebrile Ordered new x-rays of the right foot- fracture notes at the base of the 5th metatarsal, non-displaced old cast removed. Applied new BK cast. Patient instructed to keep the cast C/D/I Patient advised with remain NWB to RLE and to ambulate using crutches Patient demonstrate verbal understanding. Thank you for the podiatry consult. Patient to follow up in the podiatry clinic at [facility] - Date & Time Date: 09/29/18 Time: 15:47
--- NOTE | 2018-09-29 18:23 | RAD ---
Date of service: 09/29/2018 PROCEDURE: Right Foot Radiographs. HISTORY: Cast issues, fracture COMPARISON: 09/24/2018 FINDINGS: BONES: Three views of the right foot were performed. Overlying cast limits evaluation of the bony structures. There appears to be the suggestion of a fracture of the proximal right 5th metatarsal although not well seen through the cast. No other fractures are identified. Stable degenerative changes are seen in the 1st metatarsal phalangeal joint. JOINTS: No change SOFT TISSUES: No change OTHER FINDINGS: None. IMPRESSION: Status post casting right foot. 5th metatarsal fracture is difficult to evaluate through the cast. No new fracture seen.
== END 2018-09-29 16:30 | disposition home or self-care (01) ==
LOC: H.ER 13:18
DX: S92.351D Displaced fracture of fifth metatarsal bone, right foot, subsequent encounter for fracture with routine healing (principal); Z86.59 Personal history of other mental and behavioral disorders; I10 Essential (primary) hypertension; Z82.49 Family history of ischemic heart disease and other diseases of the circulatory system; Z86.73 Personal history of transient ischemic attack (TIA), and cerebral infarction without residual deficits

== ENCOUNTER 2018-11-01 10:07 | Emergency (ER) | payer SELFPAY ==
[2018-11-01 10:07] VITALS: BMI 28.1
[2018-11-01] MEDS ORDERED: DiphenhydrAMINE 50 mg/ml Inj IV STA ×2 (10:45→16:10)
[2018-11-01] MEDS ORDERED: DiphenhydrAMINE 50 mg/ml Inj ONE (10:55)
[2018-11-01 11:12] LABS: BASO % 0.4 % (0.0-2.0); EOS # 0.1 K/uL (0.0-0.7); EOS % 1.9 % (0.0-4.0); HEMOGLOBIN 13.1 g/dL (12.0-16.0); LYMPH # 2.6 K/uL (1.0-4.3); LYMPH % 37.8 % (20.0-40.0); MEAN CELL VOLUME 85.3 fl (81.0-99.0); MEAN CORPUSCULAR HEMOGLOBIN 28.6 pg (27.0-31.0); MEAN CORPUSCULAR HGB CONC 33.5 g/dL (33.0-37.0); MEAN PLATELET VOLUME 8.1 fl (7.2-11.7); MONO # 0.5 K/uL (0.0-0.8); NEUT # 3.5 K/uL (1.8-7.0); NEUT % 51.9 % (50.0-75.0); RBC 4.58 Mil/uL (3.80-5.20); RED CELL DISTRIBUTION WIDTH 14.1 % (11.5-14.5); WHITE BLOOD COUNT 6.8 K/uL (4.8-10.8)
[2018-11-01 11:20] LABS: ALB/GLOB RATIO 1.2 (1.0-2.1); ALT/SGPT 21 U/L (9-52); AST/SGOT 24 U/L (14-36); BLOOD UREA NITROGEN 24 mg/dl (7-17); CALCIUM 9.6 mg/dL (8.4-10.2); GFR NON-AFRICAN AMERICAN > 60
--- NOTE | 2018-11-01 14:46 | ED PDOC ---
HPI: Allergic Reaction Time Seen by Provider: 11/01/18 10:31 Chief Complaint (Nursing): Allergic Reaction Chief Complaint (Provider): allergic reaction History Per: Patient History/Exam Limitations: no limitations Onset/Duration Of Symptoms: Hrs (last night), Worse Since (onset) Current Symptoms Are (Timing): Still Present Possible Cause: Medication Associated Symptoms: Skin Rash, Swelling (to lower lip), Itching. denies: Dyspnea, Trouble Swallowing Additional Complaint(s): Mar Bailey is a 63 year old female, with a past medical history of HTN and currently taking Losartan, who presents to the emergency department complaining of swelling to lower lip and itchy rash to shoulder since last night and progressing overnight. Patient denies any difficulty swallowing, sensation of swelling to throat, shortness of breath. PMD: Maritza Mcclleland Past Medical History Reviewed: Historical Data, Nursing Documentation, Vital Signs Vital Signs: Last Vital Signs Temp 98.4 F 11/01/18 10:13 Pulse 75 11/01/18 10:13 Resp 18 11/01/18 10:13 BP 148/87 11/01/18 10:13 Pulse Ox 97 11/01/18 10:13 - Medical History PMH: Depression, HTN, Hypercholesterolemia, TIA Denies: Chronic Kidney Disease - Surgical History Surgical History: - Family History Family History: States: [place], CAD, Hypertension - Social History Current smoker - smoking cessation education provided: No Alcohol: None Drugs: Denies - Immunization History Hx Tetanus Toxoid Vaccination: No Hx Influenza Vaccination: No Hx Pneumococcal Vaccination: No - Home Medications Home Medications: Ambulatory Orders Medication Instructions Recorded Simvastatin 10 mg PO DAILY 01/26/14 DiphenhydrAMINE [Benadryl] 25 mg PO TID PRN #30 cap 08/14/18 Famotidine [Pepcid] 20 mg PO BID #20 tab 08/14/18 Losartan [Cozaar] 25 mg PO DAILY 08/14/18 Methylprednisolone [Medrol Dose 4 mg PO ASDIR #21 mg 08/14/18 Pack (21 tabs)] Acetaminophen [Acetaminophen 8 650 mg PO Q8 PRN #21 tablet.er 09/07/18 Hour] Meloxicam [Mobic] 15 mg PO DAILY PRN #10 tab 09/07/18 traMADol [Ultram] 50 mg PO Q6 PRN #12 tab 09/07/18 DiphenhydrAMINE [Benadryl] 50 mg PO Q8 #12 cap 11/01/18 Prednisone [Deltasone] 40 mg PO BID 3 Days tablet 11/01/18 - Allergies Allergies/Adverse Reactions: Allergies Allergy/AdvReac Type Severity Reaction Status Date / Time iodine Allergy RASH Verified 08/13/18 19:48 nut - unspecified Allergy SWELLING Verified 08/14/18 13:17 Review of Systems ROS Statement: Except As Marked, All Systems Reviewed And Found Negative ENT: Positive for: Mouth Swelling (lower lip). Negative for: Throat Swelling Respiratory: Negative for: Shortness of Breath Skin: Positive for: Rash (itchy rash to shoulders) Physical Exam - Reviewed Nursing Documentation Reviewed: Yes Vital Signs Reviewed: Yes - Physical Exam Appears: Positive for: No Acute Distress Head Exam: Positive for: ATRAUMATIC, NORMAL INSPECTION, NORMOCEPHALIC Skin: Positive for: Normal Color, Warm, Dry Eye Exam: Positive for: Normal appearance, EOMI, PERRL ENT: Positive for: Other (mild lower lip edema b/l, oropharynx patent without tongue or pharyngeal edema, normal voice, no stridor) Neck: Positive for: Normal, Painless ROM Cardiovascular/Chest: Positive for: Regular Rate, Rhythm. Negative for: Murmur Respiratory: Positive for: Normal Breath Sounds. Negative for: Respiratory Distress Extremity: Positive for: Normal ROM (upper and lower extremities). Negative for: Deformity, Swelling Neurologic/Psych: Positive for: Alert, Oriented. Negative for: Motor/Sensory Deficits - Laboratory Results Result Diagrams: 11/01/18 10:54 11/01/18 10:54 Lab Results: Total Bilirubin 0.6 mg/dl (0.2-1.3) 11/01/18 10:54 AST 24 U/L (14-36) 11/01/18 10:54 ALT 21 U/L (9-52) 11/01/18 10:54 Alkaline Phosphatase 71 U/L (38-126) 11/01/18 10:54 Total Protein 7.4 G/DL (6.3-8.2) 11/01/18 10:54 Albumin 4.0 g/dL (3.5-5.0) 11/01/18 10:54 Globulin 3.4 gm/dL (2.2-3.9) 11/01/18 10:54 Albumin/Globulin Ratio 1.2 (1.0-2.1) 11/01/18 10:54 - ECG O2 Sat by Pulse Oximetry: 97 (RA) Pulse Ox Interpretation: Normal Disposition - Clinical Impression Clinical Impression: Angioedema - Patient ED Disposition Is Patient to be Admitted: No - Disposition Referrals: [facility] [Outside] Disposition Time: 15:51 Condition: STABLE Additional Instructions: Return to ER for any worse or new symptoms. Take medications as directed. Stop Losartan. See clinic for new blood pressure medication. Prescriptions: DiphenhydrAMINE [Benadryl] 50 mg PO Q8 #12 cap Prednisone [Deltasone] 40 mg PO BID 3 Days tablet Instructions: Angioedema Forms: [employer] ([place]ian) Medical Decision Making Medical Decision Making: Time: 10:31 Initial Impression: Initial Plan: --Benadryl 50 mg IV --SOLU-medrol 125mg IVP --reevaluation Prior charts reviewed responded to benadryl/steroids unlikely inherited angioedema re-eval 3pm improved only minimal lower lip edema, normal upper lip, tongue/mouth/pharynx. Sat normal. No stridor. No rash. Wants to go home. D/w clinic to change losartan, followup clinic this week. Rx prednisone 40mg BID x3 days, benadryl 25mg q6 re-eval 410pm feels much better, eating dinner without difficulty, no SOB, normal tongue and mouth, edema upper lip mostly resolved. Wants to go home. Given additional dose benadryl IV as unsure if she can get to pharmacy immediately because of weather. FP Resident saw patient changed losartan to norvasc. Has followup appt. Has epi pen at home. --------- -------- Scribe Attestation: Documented by Edwin Brand, acting as a scribe for Tommy Leigh MD Provider Scribe Attestation: All medical record entries made by the Scribe were at my direction and personally dictated by me. I have reviewed the chart and agree that the record accurately reflects my personal performance of the history, physical exam, medical decision making, and the department course for this patient. I have also personally directed, reviewed, and agree with the discharge instructions and disposition.
[2018-11-01 15:32] VITALS: RESP 16
[2018-11-01 16:41] VITALS: BP 119/79; PULSE 71; TEMP 97.7; O2SAT 98
== END 2018-11-01 16:42 | disposition home or self-care (01) ==
LOC: H.ER 10:07
DX: T78.3XXA Angioneurotic edema, initial encounter (principal)
CPT/HCPCS: 80053; 85025; 96374; 99283; J1200; J2930